=== PATIENT | male | born 1950 | race Caucasian/White ===

== ENCOUNTER 2018-08-29 15:03 | Emergency (ER) | payer OTHER, BC ==
[2018-08-29] MEDS ORDERED: TRAMADOL HCL 50 MG TAB ONE (16:44)
--- NOTE | 2018-08-29 17:06 | RAD REPORT ---
EXAM DESCRIPTION: RAD - Wrist Right 3 View - 08/29/2018 4:33 pm CLINICAL HISTORY: Trip and fall, persistent wrist pain from trauma 2 days earlier COMPARISON: None. FINDINGS: No fracture is identified. There is no dislocation or periosteal reaction noted. Benign-ap pearing cystic changes present in the distal ulna. Radiocarpal joint space is significantly narrowed with spurring and sclerotic changes along the articular margins of the radius and lunate bone. There is degenerative flattening of the distal articular surface of the scaphoid. Patient has very advanced degenerative change at the trapezium first metacarpal articulation. There is subluxation of the meta carpal. No foreign body or other soft tissue abnormality. IMPRESSION: Right wrist advanced degenerative changes are present as detailed. No fracture or acute finding confirmed.
--- NOTE | 2018-08-29 17:21 | ER ---
Nurse's Notes [facility] Name: Devendra Galindo Age: 67 yrs Sex: Male : 1950 Arrival Date: 08/29/2018 Time: 15:09 Bed 18 Private MD: Stan Crenshaw H Diagnosis: Unspecified sprain of right wrist Presentation: 08/29 15:32 Presenting complaint: Patient states: Just lost my balance and fell onto my right hand sg about a day or two ago, now my right wrist is hurting. Care prior to arrival: None. Mechanism of Injury: Fall from standing position. Trauma event details: Injury occurred in the [facility], Injury occurred: at home. 15:32 Acuity: YESI 4 sg 15:32 Method Of Arrival: Ambulatory sg 16:30 Transition of care: patient was not received from another setting of care. Onset of jl7 symptoms was August 29, 2018. Risk Assessment: Do you want to hurt yourself or someone else? Patient reports no desire to harm self or others. Initial Sepsis Screen: Does the patient meet any 2 criteria? No. Patient's initial sepsis screen is negative. Does the patient have a suspected source of infection? No. Patient's initial sepsis screen is negative. Historical: - Allergies: 15:29 Penicillins; sg - Home Meds: 15:29 blood pressure med [Active]; sg - PMHx: 15:29 Hypertension; sg - PSHx: 15:29 foot sx; sg - Immunization history:: Adult Immunizations unknown. - Social history:: Smoking status: Patient/guardian denies using tobacco. - Ebola Screening: : No symptoms or risks identified at this time. Screenin:30 Abuse screen: Denies threats or abuse. Denies injuries from another. Nutritional jl7 screening: No deficits noted. Tuberculosis screening: No symptoms or risk factors identified. Fall Risk None identified. Assessment: 16:30 General: Appears in no apparent distress. uncomfortable, Behavior is calm, cooperative, jl7 appropriate for age. Pain: Complains of pain in right wrist. Neuro: Level of Consciousness is awake, alert, obeys commands, Oriented to person, place, time, situation. Cardiovascular: Patient's skin is warm and dry. Respiratory: Airway is patent Respiratory effort is even, unlabored, Respiratory pattern is regular, symmetrical. Derm: Skin is pink, warm \T\ dry. Musculoskeletal: Range of motion: limited in right wrist. Vital Signs: 15:29 BP 124 / 68; Pulse 88; Resp 17; Temp 98.2; Pulse Ox 100% on R/A; Pain 4/10; sg 16:30 BP 130 / 70; Pulse 85; Resp 16 S; Pulse Ox 100% on R/A; jl7 ED Course: 15:09 Patient arrived in ED. mr 15:10 Stan Crenshaw DO is Private Physician. mr 15:30 Patient has correct armband on for positive identification. sg 15:33 Triage completed. sg 16:04 Ovidio Anderson NP is PHCP. pm1 16:04 Emeka Garces MD is Attending Physician. pm1 16:30 Jai Cameron RN is Primary Nurse. jl7 16:30 Arm band placed on right wrist. jl7 16:33 Wrist Right 3 View XRAY In Process Unspecified. EDMS 17:36 No provider procedures requiring assistance completed. Patient did not have IV access jl7 during this emergency room visit. Administered Medications: 16:35 Drug: traMADol 50 mg Route: PO; jl7 17:35 Follow up: Response: No adverse reaction; Pain is decreased jl7 Outcome: 17:20 Discharge ordered by . pm1 17:36 Discharged to home ambulatory. jl7 17:36 Condition: stable 17:36 Discharge instructions given to patient, family, Instructed on discharge instructions, follow up and referral plans. medication usage, Demonstrated understanding of instructions, follow-up care, medications, Prescriptions given X 1. 17:38 Patient left the ED. jl7 Signatures: Dispatcher [employer] EDMS Kyaw Baker, RN RN Shena Ramos mr Oviido Anderson, DISTRICT TRAFFIC CHIEF DISTRICT TRAFFIC CHIEF pm1 Jai Cameron RN RN jl7 Corrections: (The following items were deleted from the chart) 15:33 15:32 Trauma Activation: Alert [facility]
--- NOTE | 2018-08-29 17:21 | EDPHYS ---
Physician Documentation [facility] Name: Devendra Galindo Age: 67 yrs Sex: Male : 1950 Arrival Date: 08/29/2018 Time: 15:09 Bed 18 Private MD: Stan Crenshaw H ED Physician Emeka Garces HPI: 08/29 16:18 This 67 yrs old Male presents to ER via Ambulatory with complaints of Fall pm1 Injury, Right Wrist Pain. 16:18 Details of fall: The patient fell from an upright position, while walking. Onset: The pm1 symptoms/episode began/occurred yesterday. Associated injuries: The patient sustained right wrist. Severity of symptoms: in the emergency department the symptoms are actually worse. The patient has not experienced similar symptoms in the past. The patient has not recently seen a physician. Patient with fall injury yesterday and landed on right outstretched hand. No head injury, headache, or neck pain. 16:18 No LOC. pm1 Historical: - Allergies: 15:29 Penicillins; sg - Home Meds: 15:29 blood pressure med [Active]; sg - PMHx: 15:29 Hypertension; sg - PSHx: 15:29 foot sx; sg - Immunization history:: Adult Immunizations unknown. - Social history:: Smoking status: Patient/guardian denies using tobacco. - Ebola Screening: : No symptoms or risks identified at this time. ROS: 16:18 Constitutional: Negative for fever, chills, and weight loss, Eyes: Negative for injury, pm1 pain, redness, and discharge, ENT: Negative for injury, pain, and discharge, Neck: Negative for injury, pain, and swelling, Cardiovascular: Negative for chest pain, palpitations, and edema, Respiratory: Negative for shortness of breath, cough, wheezing, and pleuritic chest pain, Abdomen/GI: Negative for abdominal pain, nausea, vomiting, diarrhea, and constipation, Back: Negative for injury and pain, : Negative for injury, bleeding, discharge, and swelling. 16:18 Skin: Negative for injury, rash, and discoloration, Neuro: Negative for headache, weakness, numbness, tingling, and seizure. 16:18 MS/extremity: Positive for pain, swelling, of the right wrist, Negative for decreased range of motion. Exam: 16:18 Constitutional: This is a well developed, well nourished patient who is awake, alert, pm1 and in no acute distress. Head/Face: Normocephalic, atraumatic. Eyes: Pupils equal round and reactive to light, extra-ocular motions intact. Lids and lashes normal. Conjunctiva and sclera are non-icteric and not injected. Cornea within normal limits. Periorbital areas with no swelling, redness, or edema. ENT: Nares patent. No nasal discharge, no septal abnormalities noted. Tympanic membranes are normal and external auditory canals are clear. Oropharynx with no redness, swelling, or masses, exudates, or evidence of obstruction, uvula midline. Mucous membranes moist. Neck: Trachea midline, no thyromegaly or masses palpated, and no cervical lymphadenopathy. Supple, full range of motion without nuchal rigidity, or vertebral point tenderness. No Meningismus. Chest/axilla: Normal chest wall appearance and motion. Nontender with no deformity. No lesions are appreciated. Cardiovascular: Regular rate and rhythm with a normal S1 and S2. No gallops, murmurs, or rubs. Normal PMI, no JVD. No pulse deficits. Respiratory: Lungs have equal breath sounds bilaterally, clear to auscultation and percussion. No rales, rhonchi or wheezes noted. No increased work of breathing, no retractions or nasal flaring. Abdomen/GI: Soft, non-tender, with normal bowel sounds. No distension or tympany. No guarding or rebound. No evidence of tenderness throughout. Back: No spinal tenderness. No costovertebral tenderness. Full range of motion. Skin: Warm, dry with normal turgor. Normal color with no rashes, no lesions, and no evidence of cellulitis. 16:18 Musculoskeletal/extremity: Extremities: grossly normal except: noted in the right wrist: swelling, tenderness, Circulation is intact in all extremities. Vital Signs: 15:29 BP 124 / 68; Pulse 88; Resp 17; Temp 98.2; Pulse Ox 100% on R/A; Pain 4/10; sg 16:30 BP 130 / 70; Pulse 85; Resp 16 S; Pulse Ox 100% on R/A; jl7 Procedures: 17:52 Splinting: Splint applied to right wrist using wrist splint, applied by nurse. Examined pm1 by me, post splint application: neurovascular intact, 2+ distal pulses palpable, brisk capillary refill noted, Patient tolerated well. MDM: 16:04 Patient medically screened. pm1 16:24 Data reviewed: vital signs. Data interpreted: Pulse oximetry: on room air is 100 %. pm1 Interpretation: normal. 17:19 Counseling: I had a detailed discussion with the patient and/or guardian regarding: the pm1 historical points, exam findings, and any diagnostic results supporting the discharge/admit diagnosis, radiology results, the need for outpatient follow up, to return to the emergency department if symptoms worsen or persist or if there are any questions or concerns that arise at home. 08/29 16:11 Order name: Wrist Right 3 View XRAY; Complete Time: 17:19 pm1 08/29 17:19 Order name: Wrist Splint; Complete Time: 17:38 pm1 Administered Medications: 16:35 Drug: traMADol 50 mg Route: PO; jl7 17:35 Follow up: Response: No adverse reaction; Pain is decreased jl7 Disposition: 18:00 Co-signature as Attending Physician, Emeka Garces MD. rn Disposition: 08/29/18 17:20 Discharged to Home. Impression: Unspecified sprain of right wrist. - Condition is Stable. - Discharge Instructions: Wrist Pain, Wrist Splint. - Prescriptions for Tramadol 50 mg Oral Tablet - take 1 tablet by ORAL route every 8 hours as needed; 12 tablet. - Medication Reconciliation Form, Thank You Letter, Antibiotic Education, Prescription Opioid Use form. - Follow up: Emergency Department; When: As needed; Reason: Worsening of condition. Follow up: Private Physician; When: 2 - 3 days; Reason: Recheck today's complaints, Continuance of care, Re-evaluation by your physician. - Problem is new. - Symptoms have improved. Signatures: Dispatcher [employer] EDMS Kyaw Baker RN Emeka Sanabria MD MD rn Marinas, Patrick, NP SEMICOND[employer]CTOR MANUFACTURING TECHNICIAN pm1 Jai Cameron RN RN jl7 Corrections: (The following items were deleted from the chart) 17:38 17:20 08/29/2018 17:20 Discharged to Home. Impression: Unspecified sprain of right jl7 wrist. Condition is Stable. Forms are Medication Reconciliation Form, Thank You Letter, Antibiotic Education, Prescription Opioid Use. Follow up: Emergency Department; When: As needed; Reason: Worsening of condition. Follow up: Private Physician; When: 2 - 3 days; Reason: Recheck today's complaints, Continuance of care, Re-evaluation by your physician. Problem is new. Symptoms have improved. pm1
== END 2018-08-29 17:38 | disposition home or self-care (01) ==
LOC: ER 15:03
DX: S63.501A Unspecified sprain of right wrist, initial encounter (principal); W19.XXXA Unspecified fall, initial encounter; Y93.01 Activity, walking, marching and hiking; Y92.9 Unspecified place or not applicable; Z88.0 Allergy status to penicillin; I10 Essential (primary) hypertension
CPT/HCPCS: 99283

== ENCOUNTER 2023-07-03 06:47 | Day surgery (SDC) | payer OTHER, BC ==
[2023-07-03] MEDS ORDERED: Ringers Lactate 1,000 ML IV ONE (07:20)
[2023-07-03] MEDS ORDERED: CIPROFLOXACIN 400mg IV 400 MG/200 ML BAG IV ONE (07:20)
[2023-07-03 07:43] LABS: Absolute Lymphocytes (CBC) 1.4 K/uL (0.7-4.9); Hematocrit 39.7 % (39.6-49.0); MPV 7.2 fL (7.6-11.3); Platelets 191 thou/uL (152-406); RBC Red Blood Cell Count 4.36 M/uL (4.33-5.43)
[2023-07-03] MEDS ORDERED: HEPARIN 5000 UNIT/ML 1 ML VIAL ONE (08:08)
[2023-07-03] MEDS ORDERED: NS 0.9% VIAL 20 ML ONE (08:08)
[2023-07-03] MEDS ORDERED: LIDOCAINE 1% 20 ML MDV ONE (08:08)
[2023-07-03] MEDS ORDERED: LIDOCAINE 1% MPF 5 ML VIAL ONE (08:25)
[2023-07-03] MEDS ORDERED: propofoL 200 MG/20 ML VIAL IV ONE ×2 (08:25→09:18)
[2023-07-03] MEDS ORDERED: MIDAZOLAM HCL 2 MG/2 ML INJ ONE (08:26)
[2023-07-03] MEDS ORDERED: HYDROCODONE/APAP 5/325 MG TAB PO PRN (09:56)
--- NOTE | 2023-07-03 09:56 | RAD REPORT ---
EXAM DESCRIPTION: RAD - Fluoroscopy <1 Hour - 07/03/2023 9:43 am CLINICAL HISTORY: PORT - A - CATH COMPARISON: Pelvis W/Wo Cont dated 07/02/2023; Pelvis Wo Cont dated 09/05/2022 FINDINGS/IMPRESSION: Two images submitted demonstrating a right IJ approach Port-A-Cath placement. No radiologist was available for the procedure, nor will any image interpretation be provided. Prasanth soria refer to the procedural report for additional details Fluoro time: 0.6 minutes Cumulative dose: 6.25 mGy
--- NOTE | 2023-07-03 10:00 | P.OP ---
Date of Service: 07/03/23 Preop diagnosis: Rectal cancer Postop diagnosis: Same Procedure performed: Placement of right IJ Port-A-Cath, utilization of ultrasoun d and fluoroscopy Surgeon: Americo Reid MD Breaker Layer: None Estimated blood loss: Minimal Specimen: None Findings: Normal anatomy Anesthesia: MAC Complications: None Drains: None Fluids and blood products: Nonapplicable Disposition: Recovery room Operative note: Patient brought to the OR and placed in supine position. MAC anesthesia begun. Patient prepped and draped in the usual sterile fashion. Lidocaine 1% infiltrated locally. Ultrasound machine used to localize the right internal jugular vein. 18-gauge needle used to access the vein. Guidewire passed and position confirmed with fluoroscopy. 3 cm counterincision made on the right anterior chest. Pocket created. Tunneling device used to tunnel the catheter between the 2 wounds. Seldinger technique used. Tip of the catheter placed at the SVC and right atrial junction. Catheter cut to appropriate size. Catheter attached to the Port-A-Cath device. Port-A-Cath device attached to subcutaneous tissue with 3-0 Vicryl. Port-A-Cath flushed with heparin and packed with heparin with good blood flow. 3-0 chromic used to approximate subcutaneous tissue and close skin. Sterile dressing applied. Patient awakened and taken to recovery room in good general condition. Chest x-ray has been ordered. CC: Dr. Barry's office
--- NOTE | 2023-07-03 10:14 | RAD REPORT ---
EXAM DESCRIPTION: RAD - Chest Single View - 07/03/2023 10:08 am CLINICAL HISTORY: Status post Port-A-Cath placement COMPARISON: Chest Pa And Lat (2 Views) dated 07/11/2022; CHEST SINGLE VIEW dated 12/17/2010; CHEST PA A ND LAT 2 VIEW dated 11/03/2008; CHEST PA AND LAT 2 VIEW dated 07/02/2006 FINDINGS: Lines: Right IJ approach Port-A-Cath with tip overlying the distal SVC in satisfactory pos ition. Lungs: No evidence of edema or pneumonia. Pleural: No significant pleural effusions or pneumothorax. Cardiac: The heart size is within normal limits. Mediastinum: Within normal limits. Bones: No acute fractures. Other: None IMPRESSION: No acute cardiopulmonary disease. Port-A-Cath with tip overlying the SVC. No pneumothora x.
[2023-07-03 12:15] VITALS: BP 129/70; TEMP 96.5; O2SAT 98
--- NOTE | 2023-07-04 13:26 | EKG ---
Test Date: 2023-07-03 Test Time: 08:49:36 Teacher Of The Visually Impaired: GLORIA MEASUREMENT RESULTS: Intervals: Rate: 95 IL: 216 QRSD: 86 QT: 350 QTc: 439 [place]: P: 67 IL: 216 QRS: 52 T: 46 INTERPRETIVE STATEMENTS: Sinus rhythm with 1st degree AV block Otherwise normal ECG Compared to ECG 12/17/2010 12:06:22 First degree AV block now present Sinus bradycardia no longer present Electronically Signed On 07-04-23 13:22:37 MANAGER RESIDENTIAL by Delvin Fuchs
== END 2023-07-03 11:17 | disposition home or self-care (01) ==
LOC: OR 06:47
PROVIDERS: ATTEND Surgery
PROC: 0JH60WZ Insertion of Totally Implantable Vascular Access Device into Chest Subcutaneous Tissue and Fascia, Open Approach (ICD-10-PCS; principal; 2023-07-03 09:00)
DX: C20 Malignant neoplasm of rectum (principal); Z88.0 Allergy status to penicillin; I10 Essential (primary) hypertension
CPT/HCPCS: 93005; 85025; 36415; 71045; 36561; J1644 ×2; A4216; J2704 ×2; J2001 ×2; J2250; J0744; J7120; C1788; 76000

== ENCOUNTER 2023-11-25 10:15 | Emergency (ER) | payer OTHER, BC ==
[2023-11-25 11:12] LABS: Absolute Eosinophils 0.1 K/uL (0-0.5); Absolute Lymphocytes (CBC) 1.1 K/uL (0.7-4.9); Absolute Monocytes 0.7 K/uL (0.1-1.3); Absolute Neutrophil 0.8 K/uL (1.8-8.0); Basophils % 1.2 % (0-1.3); Eosinophils % 3.5 % (0-4.4); Hematocrit 37.1 % (39.6-49.0); Hemoglobin 12.3 g/dL (13.6-17.9); Lymphocytes % 38.8 % (15.3-44.8); MCH 32.3 pg (27.0-35.0); MCHC 33.2 g/dL (32.0-36.0); MCV 97.3 fL (80-100); MPV 8.8 fL (7.6-11.3); Monocytes % 25.5 % (3.3-12.3); Nucleated Red Blood Cells % 0.1 % (0-0); Platelets 85 thou/uL (152-406); RBC Red Blood Cell Count 3.81 M/uL (4.33-5.43)
[2023-11-25 11:24] LABS: PTT, Activated Partial Thromb 39.3 SECONDS (24.3-36.9)
[2023-11-25 11:26] LABS: Anion Gap 8.9 mEq/L (5.0-15.0); Potassium 3.9 mEq/L (3.5-5.1)
[2023-11-25 12:19] LABS: Band Neutrophils 1 % (0-1); Differential Total Cells Count 100; Eosinophils 4 % (0-3); Lymphocytes 54 % (15-42); Monocytes 12 % (0-10); Nucleated Red Blood Cells 1 /100WBC; Segmented Neutrophils 28 % (40-80)
[2023-11-25 12:20] LABS: Anisocytosis 2+; Blood Morphology Comment NOTED (NOT SEEN); Platelet Estimate DECR
[2023-11-25] MEDS ORDERED: NA CHLORIDE 0.9% 500 ML ONE (12:22)
[2023-11-25 12:23] LABS: SARS-CoV-2 Antigen CONTROL BLUE LINE VIS/BG OK; SARS-CoV-2 Antigen Rapid Res Negative (Negative)
--- NOTE | 2023-11-25 12:25 | RAD REPORT ---
EXAM DESCRIPTION: CT - Head C Spine Cap Wo Con - 11/25/2023 11:15 am CLINICAL HISTORY: fall, AMS, back pain COMPARISON: Abdomen Wo Contrast dated 09/26/2023; Chest Abd Pelvis Wo Con dated 06/20/2023; Thorax Wo Con dated 09/26/2023 TECHNIQUE: Head and cervical spine CT images were obtained without IV contrast. Chest, abdomen, and pelvis CT images were obtained without IV contrast. Multiplanar reformats were generated and reviewed . All CT scans are performed using dose optimization technique as appropriate and may include automated exposure control or mA/KV adjustment according to patient size. FINDINGS: CT HEAD: No intracranial hemorrhage, mass effect, or edema. No evidence of acute territorial infarct. No midli ne shift or abnormal fluid collection. The ventricles are normal in caliber and configuration for age . Basal cisterns are patent. Mastoid aircells and paranasal sinuses are clear. No acute skull fractur e. CT CERVICAL SPINE: No acute cervical spine fracture or subluxation. Straightening of normal cervical lordosis which may be positional or secondary to muscle spasm. Vertebral body heights are well maintained. Ankylosis acr oss the right C2-3 facet articulations. Scattered degenerative changes of the facet articulations mos t pronounced on the right at C3-4, with at least moderate neural foraminal narrowing on the right at C3-4 and C4-5. No hyperattenuating canal hematoma. Prevertebral and paraspinous soft tissues are unre markable. CT CHEST: No pneumothorax, pulmonary contusion or pleural fluid collection. No mediastinal hematoma and the aor ta and pulmonary arteries are unremarkable. No chest will mass or abnormal axillary finding. No displ aced rib fracture or other significant bony finding. CT ABDOMEN/ PELVIS: No evidence of traumatic injury to solid abdominal viscera. Gallbladder and biliary tree are unremark able. Stable tortuosity of the abdominal aorta with aorto bi iliac graft and stents in place, with a stable fusiform aneurysmal dilation of the left internal iliac artery measuring 5.3 cm in greatest ca liber, and a saccular right common iliac artery aneurysm measuring 2.9 cm in greatest caliber. No bow el injury or significant finding. No free air, free fluid or abnormal fat stranding. No urinary bladd er abnormality. Healing right lower rib fractures, unchanged in alignment. No other significant bony finding. IMPRESSION: No acute traumatic findings. Stable appearance of healing right lower rib fractures, wi th no change in alignment. Other stable findings as above, including aorto bi-iliac stent grafting, with bilateral common iliac artery aneurysms.
--- NOTE | 2023-11-25 12:53 | RAD REPORT ---
EXAM DESCRIPTION: RAD - Elbow Right 3 View - 11/25/2023 11:29 am CLINICAL HISTORY: PAIN COMPARISON: No comparisons TECHNIQUE: Right elbow, 3 views. FINDINGS: No fracture is identified. No elevated posterior fat pad to suggest an effusion. There is no dislocation or periosteal reaction noted. No foreign body or other soft tissue abnormalit y. IMPRESSION: Negative right elbow examination.
--- NOTE | 2023-11-25 13:53 | ER ---
Nurse's Notes [facility] Name: Devendra Galindo Age: 73 yrs Sex: Male : 1950 Arrival Date: 11/25/2023 Time: 10:15 Bed 11 Private MD: Stan Crenshaw H Diagnosis: Fall on same level, unspecified;Contusion of back wall of thorax;Contusion of lower back and pelvis;Contusion of right elbow;Dehydration Presentation: 11/24 10:26 Chief complaint: Spouse and/or significant other states: Fell in the shower a few days jl7 ago, pain to back and right elbow. Also reports fatigue and congestion. Coronavirus screen: congestion, fatigue, Client presents with at least one sign or symptom that may indicate coronavirus-19. Ebola Screen: No symptoms or risks identified at this time. Initial Sepsis Screen: Does the patient meet any 2 criteria? HR > 90 bpm. No. Patient's initial sepsis screen is negative. Does the patient have a suspected source of infection? No. Patient's initial sepsis screen is negative. Risk Assessment: Do you want to hurt yourself or someone else? Patient reports no desire to harm self or others. Onset of symptoms is unknown. Care prior to arrival: None. 10:26 Method Of Arrival: Wheelchair jl7 10:26 Acuity: YESI 3 jl7 Triage Assessment: 10:26 General: Appears in no apparent distress. uncomfortable, Behavior is calm, cooperative, jl7 appropriate for age. Pain: Complains of pain in back Pain currently is 10 out of 10 on a pain scale. Neuro: Level of Consciousness is awake, alert, obeys commands, Oriented to person, place, time, situation. Cardiovascular: Patient's skin is warm and dry. Respiratory: Airway is patent Respiratory effort is even, unlabored, Respiratory pattern is regular, symmetrical. Derm: Skin is pink, warm \T\ dry. Bruising that is dark purple, on back and right elbow. Historical: - Allergies: 10:26 PENICILLINS; jl7 - PMHx: 10:26 Hypertension; jl7 - Immunization history:: Adult Immunizations unknown. - Infectious Disease History:: Denies. - Social history:: Smoking status: Patient reports the use of cigarette tobacco products, denies chronic smoking, but will smoke occasionally. - Family history:: not pertinent. - Hospitalizations: : No recent hospitalization is reported. Screenin:51 [facility] ED Fall Risk Assessment (Adult) History of falling in the last 3 months, as6 including since admission Yes- single mechanical fall (1 pt) Confusion or Disorientation No (0 pts) Intoxicated or Sedated No (0 pts) Impaired Gait Yes (1 pt) Mobility Assist Device Used No (0 pt) Altered Elimination No (0 pt) Score/Fall Risk Level 0 - 2 = Low Risk Oriented to surroundings, Maintained a safe environment, Educated pt \T\ family on fall prevention, incl call for assistance when getting out of bed, Assessed \T\ reinforced patient's understanding of fall precautions, Provided non-skid footwear. Abuse screen: Denies threats or abuse. Denies injuries from another. Nutritional screening: No deficits noted. Tuberculosis screening: No symptoms or risk factors identified. Assessment: 10:32 Reassessment: Dr. Garces in triage assessing pt. jl7 12:40 : Urine is pb blood. as6 12:40 General: provider notified o urine . as6 Vital Signs: 10:26 BP 101 / 71; Pulse 117; Resp 17 S; Temp 98.2(O); Pulse Ox 94% on R/A; jl7 10:26 Weight 77.11 kg; Height 6 ft. 5 in. ; Pain 10/10; jl7 11:45 BP 113 / 64; Pulse 68; Resp 18; Pulse Ox 100% ; as6 13:30 BP 109 / 71; Pulse 67; Resp 18; Pulse Ox 99% ; as6 10:26 Body Mass Index 20.16 (77.11 kg, 195.58 cm) jl7 10:26 Pain Scale: Adult jl7 ED Course: 10:17 Patient arrived in ED. mr 10:18 Stan Crenshaw DO is Private Physician. mr 10:18 Emeka Garces MD is Attending Physician. rn 10:26 Arm band placed on right wrist. jl7 10:34 Triage completed. jl7 11:00 Protime (+inr) Sent. bc6 11:00 Ptt, Activated Sent. bc6 11:00 Basic Metabolic Panel Sent. bc6 11:00 CBC with Diff Sent. bc6 11:00 Initial lab(s) drawn, by me, sent to lab. Inserted saline lock: 20 gauge in left bc6 forearm, using aseptic technique. Blood collected. 11:15 CT Traumagram (Head C Spine CAP wo con) In Process Unspecified. EDMS 11:27 Tao Ulrich, RN is Primary Nurse. as6 11:31 XRAY Elbow RIGHT 3 view In Process Unspecified. EDMS 11:56 Flu Sent. bc6 11:56 SARS RAPID Sent. bc6 13:51 Bed in low position. Call light in reach. Adult w/ patient. Provided Education on: fall as6 prevention . 13:51 No provider procedures requiring assistance completed. as6 13:56 IV discontinued, intact, bleeding controlled, No redness/swelling at site. Pressure as6 dressing applied. Administered Medications: 12:25 Drug: NS 0.9% IV 500 ml IV at bolus once Route: IV; Rate: bolus; Site: left forearm; as6 13:52 Follow up: Response: No adverse reaction; IV Status: Completed infusion; IV Intake: as6 500ml Medication: 13:51 VIS not applicable for this client. as6 Intake: 13:52 IV: 500ml; Total: 500ml. as6 Outcome: 13:51 Discharged to home via wheelchair, with family, as6 13:51 Condition: stable 13:52 Discharge ordered by . rn 13:56 Discharge instructions given to patient, family, Instructed on discharge instructions, as6 follow up and referral plans. Demonstrated understanding of instructions, follow-up care, 13:58 Patient left the ED. as6 Signatures: Dispatcher [employer] EDMD Shena Ramos, Reg Reg Emeka Cee MD MD rn Leal, Jahala, RN RN jl7 Tao Ulrich, CHANDA RN as6 Randee Gauthier bc
--- NOTE | 2023-11-25 13:53 | EDPHYS ---
Physician Documentation [facility] Name: Devendra Galindo Age: 73 yrs Sex: Male : 1950 Arrival Date: 11/25/2023 Time: 10:15 Bed 11 Private MD: Stan Crenshaw H ED Physician Emeka Garces HPI: 11/24 11:06 This 73 yrs old Male presents to ER via Wheelchair with complaints of Fall Injury, Back rn Pain. 11:06 Details of fall: The patient fell from an upright position, while standing. rn 11:06 Onset: The symptoms/episode began/occurred 3 day(s) ago. Associated injuries: The rn patient sustained injury to the low back, Right elbow. Severity of symptoms: At their worst the symptoms were mild, in the emergency department the symptoms are unchanged. The patient has not experienced similar symptoms in the past. Family reports patient fell in the shower a few days ago. Injured back. No blood thinners. Unsure if hit head. Family reports for the last week or 2 has been having generalized weakness with increasing fatigue and congestion. Last chemo 2 weeks ago. Patient denies any shortness of breath. No dysuria. No fever.. Historical: - Allergies: 10:26 PENICILLINS; jl7 - PMHx: 10:26 Hypertension; jl7 - Immunization history:: Adult Immunizations unknown. - Infectious Disease History:: Denies. - Social history:: Smoking status: Patient reports the use of cigarette tobacco products, denies chronic smoking, but will smoke occasionally. - Family history:: not pertinent. - Hospitalizations: : No recent hospitalization is reported. ROS: 11:06 Constitutional: Negative for fever, chills, and weight loss, Eyes: Negative for injury, rn pain, redness, and discharge, Neck: Negative for injury, pain, and swelling, Cardiovascular: Negative for chest pain, palpitations, and edema, Respiratory: Negative for shortness of breath, cough, wheezing, and pleuritic chest pain, Abdomen/GI: Negative for abdominal pain, nausea, vomiting, diarrhea, and constipation, Back: Positive for back pain MS/Extremity: Negative for injury and deformity, Skin: Negative for injury, rash, and discoloration, Neuro: Positive for generalized weakness Exam: 11:06 Constitutional: This is a well developed, well nourished patient who is awake, alert, rn and in no acute distress. ENT: Dry mucous membranes Cardiovascular: Tachycardic, regular. No pulse deficits. Respiratory: No increased work of breathing, no retractions or nasal flaring. Abdomen/GI: Soft, non-tender MS/ Extremity: Pulses equal, no cyanosis. Ecchymosis right elbow but full range of motion without pain. Full range of motion bilateral hips. Neuro: Awake and alert, GCS 15, oriented to person, place, and situation. Cranial nerves II-XII grossly intact. Motor strength 4/5 in all extremities. Sensory grossly intact. Vital Signs: 10:26 BP 101 / 71; Pulse 117; Resp 17 S; Temp 98.2(O); Pulse Ox 94% on R/A; jl7 10:26 Weight 77.11 kg; Height 6 ft. 5 in. ; Pain 10/10; jl7 11:45 BP 113 / 64; Pulse 68; Resp 18; Pulse Ox 100% ; as6 13:30 BP 109 / 71; Pulse 67; Resp 18; Pulse Ox 99% ; as6 10:26 Body Mass Index 20.16 (77.11 kg, 195.58 cm) jl7 10:26 Pain Scale: Adult jl7 MDM: 10:18 Patient medically screened. rn 13:49 Differential diagnosis: closed head injury, contusion, fracture, multiple trauma, rn sprain, strain. Data reviewed: vital signs, nurses notes, lab test result(s), radiologic studies, CT scan, and as a result, I will discharge patient. Care significantly affected by the following chronic conditions: Hypertension, Cancer. Counseling: I had a detailed discussion with the patient and/or guardian regarding the historical points, exam findings, and any diagnostic results supporting the discharge/admit diagnosis, lab results, radiology results, the need for outpatient follow up, to return to the emergency department if symptoms worsen or persist or if there are any questions or concerns that arise at home. Special discussion: I discussed with the patient/guardian in detail that at this point there is no indication for admission to the hospital. It is understood, however, that if the symptoms persist or worsen the patient needs to return immediately for re-evaluation. ED course: No acute traumatic findings found on imaging. Patient eager to go home. COVID and flu negative. CT head negative. Patient unable to get urine here and cath did not obtain urine either. Given fluids for hydration. Will discharge home with return precautions and close observation.. 11/24 10:35 Order name: CBC with Diff; Complete Time: 12:54 rn 11/24 10:35 Order name: Basic Metabolic Panel; Complete Time: 12:12 rn 11/24 10:35 Order name: Protime (+inr); Complete Time: 12:12 rn 11/24 10:35 Order name: Ptt, Activated; Complete Time: 12:12 rn 11/24 11:12 Order name: SARS RAPID; Complete Time: 12:54 rn 11/24 11:12 Order name: Flu; Complete Time: 12:54 rn 11/24 12:13 Order name: Manual Differential; Complete Time: 12:54 EDMS 11/24 10:35 Order name: XRAY Elbow RIGHT 3 view; Complete Time: 12:54 rn 11/24 10:43 Order name: CT Traumagram (Head C Spine CAP wo con); Complete Time: 12:54 rn 11/24 10:35 Order name: IV Start; Complete Time: 11:00 rn Administered Medications: 12:25 Drug: NS 0.9% IV 500 ml IV at bolus once Route: IV; Rate: bolus; Site: left forearm; as6 13:52 Follow up: Response: No adverse reaction; IV Status: Completed infusion; IV Intake: as6 500ml Disposition Summary: 11/25/23 13:52 Discharge Ordered Notes: Location: Home rn Problem: new rn Symptoms: have improved rn Condition: Stable rn Diagnosis - Fall on same level, unspecified rn - Contusion of back wall of thorax rn - Contusion of lower back and pelvis rn - Contusion of right elbow rn - Dehydration rn Followup: rn - With: Private Physician - When: As needed - Reason: Recheck today's complaints, Re-evaluation by your physician Discharge Instructions: - Discharge Summary Sheet rn - Contusion rn - Dehydration, Adult rn - Fall Prevention in the Home, Adult rn - Thrombocytopenia rn Forms: - Medication Reconciliation Form rn - Antibiotic envelope patternmaker - Prescription Opioid Use rn - Patient Portal Instructions rn - Leadership Thank You Letter rn Signatures: Dispatcher [employer] EDEmeka Macias MD MD rn Leal, Jahala RN RN jl7 Tao Ulrich RN RN as6 Corrections: (The following items were deleted from the chart) 10:36 10:36 CBC+H.LAB.BRZ ordered. EDMS EDMS 10:36 10:36 BASIC METABOLIC PANEL+C.LAB.BRZ ordered. EDMS EDMS 10:36 10:36 PROTIME (+INR)+COAG.LAB.BRZ ordered. EDMS EDMS 10:36 10:36 PTT, ACTIVATED+COAG.LAB.BRZ ordered. EDMS EDMS 10:36 10:36 Urinalysis+U.LAB.BRZ ordered. EDMS EDMS 11:07 10:36 Head C Spine CAP W Con+CT.RAD.BRZ ordered. EDMS EDMS 11:13 11:12 SARS-COV-2 Antigen Rapid+I.LAB.BRZ ordered. EDMS EDMS 11:13 11:12 Influenza Screen (A \T\ B)+BA.LAB.BRZ ordered. EDMS EDMS 12:13 11:20 CBC Smear Scan ordered. EDMS EDMS
[2023-11-25 20:02] VITALS: TEMP 98.2
[2023-11-25 20:24] VITALS: BP 109/71; O2SAT 99
== END 2023-11-25 13:58 | disposition home or self-care (01) ==
LOC: ER 10:15
DX: S30.0XXA Contusion of lower back and pelvis, initial encounter (principal); S20.222A Contusion of left back wall of thorax, initial encounter; S50.01XA Contusion of right elbow, initial encounter; W18.30XA Fall on same level, unspecified, initial encounter; E86.0 Dehydration; F17.210 Nicotine dependence, cigarettes, uncomplicated; Z11.52 Encounter for screening for COVID-19
CPT/HCPCS: 85025; 80048; 36415; 85610; 85730; 87804 ×2; 70450; 71250; 72125; 73080; 87811; J7040